=== PATIENT | male | born 1990 | race African-American/Black ===

== ENCOUNTER 2022-05-19 18:34 | Emergency (ER) | payer MEDICAID ==
[~2022-05-19] VITALS: Ht 177.8 cm; Wt 85.0 kg
[2022-05-19 18:40] VITALS: BP 130/85
[2022-05-19] MEDS ORDERED: KETOROLAC 60MG/2ML VIAL IM ONE (21:15)
[2022-05-19] MEDS ORDERED: DOXY100T2 MT (23:31)
== END 2022-05-20 05:41 | disposition home or self-care (01) ==
LOC: ER 18:34
DX: J32.1 Chronic frontal sinusitis (principal); J32.2 Chronic ethmoidal sinusitis; J32.0 Chronic maxillary sinusitis
CPT/HCPCS: 99284